=== PATIENT | female | born 1960 | race Two or more races ===

== ENCOUNTER 2024-09-01 11:43 | Emergency (ER) | payer OTHER ==
[~2024-09-01] VITALS: Ht 152.4 cm; Wt 61.2 kg
[2024-09-01] MEDS ORDERED: ALTACE10 MG PO (11:48)
[2024-09-01] MEDS ORDERED: LIPITOR20 MG PO (11:48)
[2024-09-01] MEDS ORDERED: LEFLUNOMIDE20 MG PO (11:48)
[2024-09-01] MEDS ORDERED: LIDOCAINE HCL 1% 10ML VIAL ONE ×2 (13:46→16:34)
[2024-09-01] MEDS ORDERED: KETOROLAC TROMETHAMINE 60 MG VIAL IM ONE (16:03)
== END 2024-09-01 18:13 | disposition home or self-care (01) ==
LOC: ER 11:43
DX: S01.521A Laceration with foreign body of lip, initial encounter (principal); W01.0XXA Fall on same level from slipping, tripping and stumbling without subsequent striking against object, initial encounter; Y93.89 Activity, other specified; Y92.59 Other trade areas as the place of occurrence of the external cause; S63.254A Unspecified dislocation of right ring finger, initial encounter; I10 Essential (primary) hypertension; E78.00 Pure hypercholesterolemia, unspecified; S93.491A Sprain of other ligament of right ankle, initial encounter

== ENCOUNTER → 2024-09-07 | Emergency (ER) | payer OTHER ==
[~2024-09-07] VITALS: Ht 152.4 cm; Wt 59.0 kg
[~2024-09-07] MED LIST: ALTACE10 MG PO; LEFLUNOMIDE20 MG PO; LIPITOR20 MG PO; METOPROLOL SUCC50 MG PO
== END | disposition home or self-care (01) ==
LOC: ER 06:55
DX: Z48.02 Encounter for removal of sutures (principal)